=== PATIENT | male | born 1975 | race Two or more races ===

== ENCOUNTER 2022-05-14 10:19 | Inpatient (IN) | payer OTHER ==
[~2022-05-14] VITALS: Ht 182.9 cm; Wt 77.0 kg
[2022-05-14 13:05] LABS: Basophils # (auto) 0 10 ^3/uL (0-0.2); Basophils % (auto) 0.2 % (0.0-2.0); Eosinophils # (auto) 0.1 10 ^3/uL (0-0.8); Eosinophils % (auto) 0.5 % (0.0-7.0); Hematocrit 43.6 % (41.0-53.0); Hemoglobin 14.5 g/dL (13.5-17.5); Lymphocytes # (auto) 1.5 10 ^3/uL (0.4-5.4); Lymphocytes % (auto) 12.9 % (10.0-50.0); Mean Corpuscular Hemoglobin 26.7 pg (28.0-32.0); Mean Corpuscular Hgb Conc. 33.3 g/dL (32.0-36.0); Mean Corpuscular Volume 80.3 fL (80.0-100.0); Monocytes # (auto) 0.5 10 ^3/uL (0-1.3); Monocytes % (auto) 3.9 % (0.0-12.0); Neutrophils # (auto) 9.7 10 ^3/uL (1.6-8.6); Neutrophils % (auto) 82.5 % (37.0-80.0); Nucleated Red Blood Cells % 0.1 %; Red Blood Cells 5.42 10^6/uL (4.5-5.90); White Blood Cell 11.8 10^3/uL (4.4-10.8)
[2022-05-14] MEDS ORDERED: AZITHROMYCIN 500MG/ 250ML 250 ML IV ONE (13:15)
[2022-05-14] MEDS ORDERED: cefTRIAXone 1GM/50ML D5W 50 ML IV ONE (13:15)
[2022-05-14] MEDS ORDERED: KETOROLAC TROMETH 30 MG/ML 1ML VIAL IV ONE (13:15)
[2022-05-14 13:27] LABS: Potassium 3.2 mmol/L (3.5-5.1)
[2022-05-14 13:34] LABS: Albumin 3.1 g/dL (3.4-5.0); BUN/Creatinine Ratio 19.3 (10.0-20.0); Bilirubin, Total 0.9 mg/dL (0.2-1.0)
[2022-05-14] MEDS ORDERED: SODIUM CHLORIDE 0.9% 500 ML IV ONE (14:15)
[2022-05-14] MEDS ORDERED: POTASSIUM CHL 20 Meq TABLET PO ONE (14:15)
[2022-05-14] MEDS ORDERED: ONDANSETRON HCL 4 MG/2 ML VIAL IV PRN ×2 (15:45→22:15)
[2022-05-14] MEDS: HYDROcodone-ACET 5/325MG TAB PO PRN (20:27)
[2022-05-14 23:30] VITALS: BP 116/68
[2022-05-14 23:39] VITALS: BP 116/68
[2022-05-15] MEDS: HYDROcodone-ACET 5/325MG TAB PO PRN ×2 (03:10→23:00)
[2022-05-15 05:00] VITALS: BP 111/62
[2022-05-15] MEDS: cefTRIAXone 1GM/50ML D5W 50 ML IV SCH (08:14)
[2022-05-15 08:30] VITALS: BP 123/75
[2022-05-15] MEDS ORDERED: cefTRIAXone 1GM/50ML D5W 50 ML IV SCH (10:00)
[2022-05-15] MEDS ORDERED: AZITHROMYCIN 500MG/ 250ML 250 ML IV SCH (10:00)
[2022-05-15] MEDS ORDERED: ENOXAPARIN SOD 40 MG/0.4 ML SYRINGE SC SCH (10:00)
[2022-05-15] MEDS: ENOXAPARIN SOD 40 MG/0.4 ML SYRINGE SC SCH (10:11)
[2022-05-15] MEDS: AZITHROMYCIN 500MG/ 250ML 250 ML IV SCH (10:11)
[2022-05-15 12:30] VITALS: BP 121/83
[2022-05-15] MEDS ORDERED: methylPREDNISolone SOD SUCC 40 MG/ML VL IV ONE (13:45)
[2022-05-15] MEDS ORDERED: ALBUTEROL SULF HFA 90MCG INH 200DOSE IN SCH (14:00)
[2022-05-15 15:00] VITALS: BP 121/83
[2022-05-15] MEDS ORDERED: ALBUTEROL SULF 2.5 MG/0.5ML(0.5%) NEB SOLN NEB PRN (15:00)
[2022-05-15 17:00] VITALS: BP 124/70
[2022-05-15 22:00] VITALS: BP 132/71
[2022-05-16 05:00] VITALS: BP 113/61
[2022-05-16 07:20] LABS: Calcium 8.7 mg/dL (8.5-10.1); Potassium 4.5 mmol/L (3.5-5.1)
[2022-05-16 07:23] LABS: BUN/Creatinine Ratio 24.1 (10.0-20.0)
[2022-05-16 08:30] VITALS: BP 131/74
[2022-05-16] MEDS: cefTRIAXone 1GM/50ML D5W 50 ML IV SCH (09:02)
[2022-05-16] MEDS: HYDROcodone-ACET 5/325MG TAB PO PRN ×2 (09:02→19:47)
[2022-05-16] MEDS: AZITHROMYCIN 500MG/ 250ML 250 ML IV SCH (11:15)
[2022-05-16] MEDS: ENOXAPARIN SOD 40 MG/0.4 ML SYRINGE SC SCH (11:15)
[2022-05-16] MEDS ORDERED: methylPREDNISolone SOD SUCC 125 MG/2 ML VL IV ONE (11:30)
[2022-05-16 12:30] VITALS: BP 111/67
[2022-05-16 17:00] VITALS: BP 120/68
[2022-05-16 22:00] VITALS: BP 115/66
[2022-05-17 05:00] VITALS: BP 111/53
[2022-05-17 09:00] VITALS: BP 103/63
[2022-05-17] MEDS: ENOXAPARIN SOD 40 MG/0.4 ML SYRINGE SC SCH (11:07)
[2022-05-17] MEDS: cefTRIAXone 1GM/50ML D5W 50 ML IV SCH ×2 (11:07→15:30)
[2022-05-17] MEDS: HYDROcodone-ACET 5/325MG TAB PO PRN ×2 (11:20→19:34)
[2022-05-17] MEDS: ALBUTEROL SULF 2.5 MG/0.5ML(0.5%) NEB SOLN NEB SCH ×2 (12:29→19:01)
[2022-05-17 13:00] VITALS: BP 111/65
[2022-05-17] MEDS: AZITHROMYCIN 500MG/ 250ML 250 ML IV SCH (13:26)
[2022-05-17] MEDS: IBUPROFEN 800 MG TAB PO PRN ×2 (15:03→23:40)
[2022-05-17 17:00] VITALS: BP 102/54
[2022-05-17 21:53] VITALS: BP 93/53
[2022-05-18 05:00] VITALS: BP 104/54
[2022-05-18] MEDS: ALBUTEROL SULF 2.5 MG/0.5ML(0.5%) NEB SOLN NEB SCH ×3 (06:49→18:05)
[2022-05-18 09:00] VITALS: BP 117/66
[2022-05-18 10:27] VITALS: BP 104/54
[2022-05-18] MEDS: cefTRIAXone 1GM/50ML D5W 50 ML IV SCH (10:50)
[2022-05-18] MEDS: ENOXAPARIN SOD 40 MG/0.4 ML SYRINGE SC SCH (10:50)
[2022-05-18] MEDS ORDERED: CIPR500T4 PO (11:26)
[2022-05-18] MEDS ORDERED: AZIT250T8 PO (11:26)
[2022-05-18 13:00] VITALS: BP 103/55
[2022-05-18] MEDS ORDERED: SUMAtriptan SUCCINATE 6 MG/0.5 ML VL SC ONE (14:15)
[2022-05-18] MEDS: AZITHROMYCIN 500MG/ 250ML 250 ML IV SCH (15:00)
== END 2022-05-18 18:33 | DRG 179 ==
LOC: ER 10:19 → EDBD 10:19 → EEVIPCON 10:19 → OVERFLOW 15:47 → EAST 22:45
PROVIDERS: ADMIT Internal Medicine; ATTEND Internal Medicine
DX: J15.6 Pneumonia due to other Gram-negative bacteria (principal); R91.1 Solitary pulmonary nodule; K21.9 Gastro-esophageal reflux disease without esophagitis; R51.9 Headache, unspecified; Z20.822 Contact with and (suspected) exposure to COVID-19
CPT/HCPCS: 36415; 71045; 71250; 80048; 80053; 83605; 85025; 87040; 87070; 87205; 87426; 87804; 94640; 96365; 96366; 96375; G0378; J0696; J1885; J2405